=== PATIENT | female | born 1985 | race Two or more races ===

== ENCOUNTER → 2016-05-14 | Outpatient (CLI) | payer BC ==
[2016-05-14 10:53] LABS: HEMATOCRIT 46.3 % (36.0-47.0); HEMOGLOBIN 15.5 g/dL (12.0-15.5); HGB HCT DIFFERENCE 0.2; MEAN CORPUSCULAR HEMOGLOBIN 30.4 pg (27.0-33.4); MEAN CORPUSCULAR HGB CONC 33.5 g/dL (32.0-36.0); MEAN CORPUSCULAR VOLUME 91 fl (80-97); RED BLOOD COUNT 5.11 10^6/uL (3.72-5.28); RED CELL DISTRIBUTION WIDTH 13.6 % (11.5-14.0); WHITE BLOOD COUNT 7.7 10^3/uL (4.0-10.5)
[2016-05-14 11:35] LABS: CHOLESTEROL 215.82 mg/dL (0-200); Direct HDL 68 mg/dL (>40); TRIGLYCERIDES 111 mg/dL (<150)
[2016-05-14 11:46] LABS: DIRECT LDL 142 mg/dL (<100)
== END ==
LOC: OD 08:53
PROVIDERS: ATTEND Nurse Practitioner
DX: Z79.899 Other long term (current) drug therapy (principal)
CPT/HCPCS: 36415; 80061; 82306; 82607; 83036; 85027